=== PATIENT | female | born 1985 | race African-American/Black ===

== ENCOUNTER 2020-06-15 21:30 | Emergency (ER) | payer MEDICARE, MEDICAID ==
[~2020-06-15] VITALS: Ht 152.4 cm; Wt 59.0 kg
[2020-06-15] MEDS ORDERED: ACETAMINOPHEN 500MG TABLET PO ONE (22:15)
[2020-06-15] MEDS ORDERED: NAPR-420 MT (22:46)
[2020-06-15 23:21] VITALS: BP 130/37
== END 2020-06-15 23:22 | disposition home or self-care (01) ==
LOC: ER 21:30
DX: S80.11XA Contusion of right lower leg, initial encounter (principal); W22.8XXA Striking against or struck by other objects, initial encounter; Y93.89 Activity, other specified; Y92.89 Other specified places as the place of occurrence of the external cause; Y99.8 Other external cause status
CPT/HCPCS: 73590; 99283

== ENCOUNTER 2020-10-12 12:31 | Emergency (ER) | payer MEDICARE, MEDICAID ==
[~2020-10-12] VITALS: Ht 152.4 cm; Wt 59.0 kg
[~2020-10-12 12:31] MED LIST: NAPR-420 MT
[2020-10-12] MEDS ORDERED: ACETAMINOPHEN 500MG TABLET PO ONE (13:00)
[2020-10-12 14:02] LABS: CLARITY URINE CLEAR (CLEAR); COLOR URINE YELLOW (YELLOW); KETONES URINE NEGATIVE (NEGATIVE); LEUKOCYTE ESTERASE URINE NEGATIVE (NEGATIVE); NITRITE URINE NEGATIVE (NEGATIVE); OCCULT BLOOD URINE NEGATIVE (NEGATIVE); PH URINE 6.5 (4.5-8.0); PROTEIN URINE NEGATIVE (NEGATIVE); SPECIFIC GRAVITY URINE 1.002 (1.005-1.030); UROBILINOGEN URINE 0.2 E.U./dL (0.2-1.0)
[2020-10-12 15:56] VITALS: BP 128/71
[2020-10-14 04:12] LABS: NEISSERIA GONORRHOEAE NAA Negative (Negative)
== END 2020-10-12 15:57 | disposition home or self-care (01) ==
LOC: ER 12:31
DX: T83.84XA Pain due to genitourinary prosthetic devices, implants and grafts, initial encounter (principal); R10.2 Pelvic and perineal pain; Y76.1 Therapeutic (nonsurgical) and rehabilitative obstetric and gynecological devices associated with adverse incidents; Y92.038 Other place in apartment as the place of occurrence of the external cause; D25.9 Leiomyoma of uterus, unspecified
CPT/HCPCS: 76830; 76856; 81003; 81025; 87210; 87491; 87591; 99284